=== PATIENT | female | born 1970 | race Caucasian/White ===

== ENCOUNTER → 2016-09-21 | Outpatient (CLI) | payer MEDICARE, MEDICAID ==
[~2016-09-21] MED LIST: ALBU20IN INH; CEFT500T PO; CLAR10CA3 PO; MUCI600T34 PO; MULTCAP11 PO; NYST50SS SS; SYNT25TA PO; TESS100C PO; VITA500T53 PO; [UNRECOGNIZED DRUG - CODE] EX
--- NOTE | 2016-09-21 18:17 | REP ---
CHEST, PA AND LATERAL: 09/21/2016. Clinical history: Acute laryngotracheitis. Comparison: 10/18/2013, 08/17/2013. Findings: The lung pritchard are well inflated. There is no pleural effusion or lateral pleural thickening. Minor apical scarring is noted. Heart is not enlarged. Aorta is normal. Airway intact. There is some infrahilar patchy atelectasis or infiltrate at the right base without dense consolidation or air bronchograms. Peribronchial thickening suggesting some bronchitis or reactive airway disease seen. Bones grossly intact. No free air. Impression: 1. Some perihilar changes of bronchitis or reactive airway disease and right infrahilar patchy atelectasis or infiltrate without dense consolidation or effusion. Signed by Jeb Hearn MD 09/22/2016 09:19 A
== END ==
LOC: M WUC 16:39
PROVIDERS: ATTEND Physician Assistant Medical
DX: J04.2 Acute laryngotracheitis (principal)
CPT/HCPCS: 71020; G0463

== ENCOUNTER 2016-11-20 16:09 | Emergency (ER) | payer MEDICARE, MEDICAID ==
[2016-11-20 18:30] VITALS: BP 127/77
--- NOTE | 2016-11-21 07:21 | REP ---
CHEST X-RAY: Two views. HISTORY: Cough. Transit hypotension. Comparison study September 21, 2016. FINDINGS: The lungs are symmetrically aerated and clear. Heart is not enlarged. Pulmonary vasculature is not increased. Pleural angles are sharp. IMPRESSION: No active disease. Signed by Td Bauer MD 11/21/2016 11:41 A
== END 2016-11-20 18:31 | disposition home or self-care (01) ==
LOC: EDBD 16:09 → M ED 16:47
DX: B34.9 Viral infection, unspecified (principal)

== ENCOUNTER → 2016-12-01 | Outpatient (REF) | payer MEDICARE, MEDICAID ==
[2016-12-01 18:01] LABS: FREE T4 1.53 NG/DL (0.76-1.46); PERCENT SATURATION 8.6 % (13.2-37.4)
== END ==
LOC: M SFHCPLAZ 15:18
PROVIDERS: ATTEND Family Medicine
DX: E78.2 Mixed hyperlipidemia (principal); E03.9 Hypothyroidism, unspecified; D78.89 Other postprocedural complications of the spleen; D51.3 Other dietary vitamin B12 deficiency anemia; R73.01 Impaired fasting glucose; J30.9 Allergic rhinitis, unspecified; Z79.899 Other long term (current) drug therapy
CPT/HCPCS: 36415; 80061; 82550; 82728; 83550; 84439; 84443; 86140; G0463

== ENCOUNTER → 2016-12-02 | Outpatient (CLI) | payer MEDICARE, MEDICAID ==
--- NOTE | 2016-12-02 13:03 | REPMRS ---
Patient History The patient states she had a clinical breast exam in 11/2016. Patient is postmenopausal and is nulliparous. No known family history of cancer. Digital Woman Screen Mammo: December 02, 2016 - Exam #: [id number] Bilateral CC and MLO view(s) were taken. Technologist: Ping Clarke, Technologist Prior study comparison: September 24, 2015, digital woman screen mammo performed at [facility]. September 23, 2014, digital woman screen mammo performed at [facility]. September 05, 2013, digital woman screen mammo performed at [facility]. FINDINGS: The breast tissue is heterogeneously dense. This may lower the sensitivity of mammography. There has been no change in the appearance of the mammogram from the prior studies. There is a moderate amount of residual fibroglandular tissue which is fairly symmetric. There is no interval development of dominant mass, architectural distortion, or clustered microcalcification typical of malignancy. Scattered lymph nodes are seen in the right axilla. No significant changes when compared with prior studies. ASSESSMENT: BI-RADS/ACR category 2 mammogram. Benign finding(s). Recommendation Routine screening mammogram in 1 year (for women over age 40). This mammogram was interpreted with the aid of an FDA-approved computer-aided dectection system. A. Negative x-ray reports should not delay biopsy if a dominant or clinically suspicious mass is present. B. Four to eight percent of cancers are not identified by mammography. C. Adenosis and dense breast may obscure an underlying neoplasm. Electronically Signed By: Jeb Hearn MD 12/02/16 0961
== END ==
LOC: M WHC 10:35
PROVIDERS: ATTEND Nurse Practitioner Family
DX: Z01.419 Encounter for gynecological examination (general) (routine) without abnormal findings (principal); Z12.31 Encounter for screening mammogram for malignant neoplasm of breast; Z78.0 Asymptomatic menopausal state
CPT/HCPCS: G0101; G0202

== ENCOUNTER → 2017-04-22 | Outpatient (CLI) | payer MEDICARE, MEDICAID ==
[2017-04-22 10:08] LABS: RETIC HEMOGLOBIN CONTENT CHr 35.5 PG (24-36); RETICULOCYTE % 1.9 % (0.5-1.5)
[2017-04-22 10:11] LABS: MEAN CORPUSCULAR HEMOGLOBIN 34.7 pg (27.0-33.0); MEAN CORPUSCULAR HGB CONC 34.4 g/dl (32.0-36.5); MEAN CORPUSCULAR VOLUME 100.9 fl (80.0-96.0); RED CELL DISTRIBUTION WIDTH 12.9 % (11.5-14.5); WHITE BLOOD COUNT 4.1 K/mm3 (4.0-10.0)
[2017-04-22 10:29] LABS: ALBUMIN 3.6 GM/DL (3.2-5.2); ALKALINE PHOSPHATASE 78 U/L (45-117); ALT/SGPT 17 U/L (12-78); ANION GAP 6 MEQ/L (8-16); AST/SGOT 17 U/L (15-37); BILIRUBIN,TOTAL 0.5 MG/DL (0.2-1.0); BLOOD UREA NITROGEN 17 MG/DL (7-18); CALCIUM LEVEL 8.4 MG/DL (8.5-10.1); CARBON DIOXIDE LEVEL 27 MEQ/L (21-32); CHLORIDE LEVEL 109 MEQ/L (98-107); CREATININE FOR GFR 0.98 MG/DL (0.55-1.02); FERRITIN 196 NG/ML (8-252); GLOMERULAR FILTRATION RATE > 60.0 (>58); GLUCOSE, FASTING 94 MG/DL (70-105); PERCENT SATURATION 41.8 % (13.2-45.0); POTASSIUM SERUM 4.4 MEQ/L (3.5-5.1); SODIUM LEVEL 142 MEQ/L (136-145); TOTAL IRON BINDING CAPACITY 285 UG/DL (250-450); TOTAL PROTEIN 7.2 GM/DL (6.4-8.2)
[2017-04-22 10:50] LABS: BASOPHILS 2 % (0-4)
== END ==
LOC: M LAB 09:24
PROVIDERS: ATTEND Family Medicine
DX: D50.8 Other iron deficiency anemias (principal); E55.9 Vitamin D deficiency, unspecified; R73.01 Impaired fasting glucose

== ENCOUNTER → 2017-08-23 | Outpatient (CLI) | payer MEDICARE, MEDICAID ==
[2017-08-23 08:00] LABS: BASO # 0.1 10^3/uL (0.0-0.2); BASO % 1.8 % (0.0-1.0); EOS # 0.1 10^3/uL (0.0-0.50); EOS % 2.8 % (0.0-3.0); IMMATURE GRANULOCYTE % 0.7 % (0-0); LYMPH # 1.7 10^3/uL (1.5-4.5); MEAN CORPUSCULAR HEMOGLOBIN 33.9 pg (27.0-33.0); MEAN CORPUSCULAR HGB CONC 34.1 g/dl (32.0-36.5); MEAN CORPUSCULAR VOLUME 99.6 fl (80.0-96.0); MONO # 0.5 10^3/uL (0.0-0.8); MONO % 10.1 % (0.0-5.0); NEUTROPHILS # 2.2 10^3/uL (1.8-7.7); NEUTROPHILS % 47.6 % (36.0-66.0); PLATELET COUNT, AUTOMATED 433 10^3/uL (150-450); RED CELL DISTRIBUTION WIDTH 13.3 % (11.5-14.5); WHITE BLOOD COUNT 4.6 10^3/uL (4.0-10.0)
[2017-08-23 08:48] LABS: BLOOD UREA NITROGEN 19 MG/DL (7-18); CREATININE FOR GFR 0.93 MG/DL (0.55-1.02); GLUCOSE, FASTING 105 MG/DL (70-105)
[2017-08-23 08:49] LABS: ALBUMIN 3.8 GM/DL (3.2-5.2); ALBUMIN/GLOBULIN RATIO 0.93 (1.00-1.93); ALKALINE PHOSPHATASE 141 U/L (45-117); ALT/SGPT 47 U/L (12-78); ANION GAP 7 MEQ/L (8-16); AST/SGOT 27 U/L (7-37); BILIRUBIN,TOTAL 0.3 MG/DL (0.2-1.0); CALCIUM LEVEL 8.8 MG/DL (8.5-10.1); CARBON DIOXIDE LEVEL 30 MEQ/L (21-32); CHLORIDE LEVEL 105 MEQ/L (98-107); FREE T4 1.36 NG/DL (0.76-1.46); GLOMERULAR FILTRATION RATE > 60.0 (>58); POTASSIUM SERUM 4.9 MEQ/L (3.5-5.1); SODIUM LEVEL 142 MEQ/L (136-145); TOTAL PROTEIN 7.9 GM/DL (6.4-8.2)
[2017-08-24 12:46] LABS: ALBUMIN % 54.8 % (55.8-66.1); GAMMA GLOBULIN % 20.5 % (11.1-18.8)
== END ==
LOC: M LAB 06:30
PROVIDERS: ATTEND Family Medicine
DX: D75.89 Other specified diseases of blood and blood-forming organs (principal); R73.01 Impaired fasting glucose; E03.9 Hypothyroidism, unspecified

== ENCOUNTER → 2017-12-04 | Outpatient (CLI) | payer MEDICARE, MEDICAID | LOC: M WHC 13:21 | DX: Z12.31 Encounter for screening mammogram for malignant neoplasm of breast (principal); Z78.0 Asymptomatic menopausal state; Z23 Encounter for immunization | CPT/HCPCS: 77067 ==

== ENCOUNTER → 2017-12-26 | Outpatient (CLI) | payer MEDICARE, MEDICAID ==
[2017-12-26 09:02] LABS: TOTAL 25(OH) VITAMIN D 62.5 NG/ML (30.0-100.0)
== END ==
LOC: M LAB 07:23
DX: E55.9 Vitamin D deficiency, unspecified (principal)
CPT/HCPCS: 82306

== ENCOUNTER → 2018-06-19 | Outpatient (CLI) | payer MEDICARE, MEDICAID ==
[2018-06-19 07:05] LABS: BASO # 0.1 10^3/uL (0.0-0.2); BASO % 1.6 % (0.0-1.0); EOS # 0.1 10^3/uL (0.0-0.50); EOS % 2.4 % (0.0-3.0); HEMATOCRIT 47.2 % (36.0-47.0); HEMOGLOBIN 15.6 g/dl (12.0-15.5); IMMATURE GRANULOCYTE % 0.3 % (0-3.0); LYMPH # 1.6 10^3/uL (1.5-4.5); LYMPH % 43.5 % (24.0-44.0); MEAN CORPUSCULAR HEMOGLOBIN 33.9 pg (27.0-33.0); MEAN CORPUSCULAR HGB CONC 33.1 g/dl (32.0-36.5); MEAN CORPUSCULAR VOLUME 102.6 fl (80.0-96.0); MONO # 0.4 10^3/uL (0.0-0.8); MONO % 11.5 % (0.0-5.0); NEUTROPHILS # 1.5 10^3/uL (1.8-7.7); NEUTROPHILS % 40.7 % (36.0-66.0); PLATELET COUNT, AUTOMATED 316 10^3/uL (150-450); RED CELL DISTRIBUTION WIDTH 13.2 % (11.5-14.5); RETIC HEMOGLOBIN EQUIVALENT 38.2 pg (24-36); RETICULOCYTE # 85.1 10^9/L (17-77); RETICULOCYTE % 1.9 % (0.5-1.5); WHITE BLOOD COUNT 3.8 10^3/uL (4.0-10.0)
[2018-06-19 07:10] LABS: HEMATOCRIT 47.2 % (36.0-47.0)
[2018-06-19 07:16] LABS: ESTIMATED AVERAGE GLUCOSE 120 MG/DL (60-110); HEMOGLOBIN A1c 5.8 %
[2018-06-19 07:43] LABS: ALBUMIN 3.6 GM/DL (3.2-5.2); ALBUMIN/GLOBULIN RATIO 0.86 (1.00-1.93); ALKALINE PHOSPHATASE 113 U/L (45-117); ALT/SGPT 26 U/L (12-78); ANION GAP 5 MEQ/L (8-16); AST/SGOT 21 U/L (7-37); BILIRUBIN,TOTAL 0.4 MG/DL (0.2-1.0); BLOOD UREA NITROGEN 22 MG/DL (7-18); CALCIUM LEVEL 8.8 MG/DL (8.5-10.1); CARBON DIOXIDE LEVEL 32 MEQ/L (21-32); CHLORIDE LEVEL 105 MEQ/L (98-107); FREE T4 1.25 NG/DL (0.76-1.46); GLOMERULAR FILTRATION RATE > 60.0 (>58); GLUCOSE, FASTING 93 MG/DL (70-100); POTASSIUM SERUM 4.4 MEQ/L (3.5-5.1); SODIUM LEVEL 142 MEQ/L (136-145); TOTAL PROTEIN 7.8 GM/DL (6.4-8.2)
[2018-06-19 10:45] LABS: PRETREATED FOLATE FOR RBCFOL 21.3 NG/ML; RBC FOLATE 947.7 NG/ML (280-791)
[2018-06-20 15:03] LABS: INSULIN LEVEL 12.3 uIU/mL (2.6-24.9)
== END ==
LOC: M LAB 06:18
DX: D50.8 Other iron deficiency anemias (principal); E03.9 Hypothyroidism, unspecified; E53.8 Deficiency of other specified B group vitamins; R73.01 Impaired fasting glucose
CPT/HCPCS: 83525

== ENCOUNTER → 2018-11-22 | Outpatient (CLI) | payer MEDICARE, MEDICAID ==
[2018-11-22 07:24] LABS: AMORPHOUS SEDIMENT SMALL (NEGATIVE); APPEARANCE, URINE CLEAR (CLEAR); BACTERIA, URINE AUTO NEGATIVE (NEGATIVE); BILIRUBIN, URINE AUTO NEGATIVE (NEGATIVE); BLOOD, URINE BLOOD NEGATIVE (NEGATIVE); COLOR, URINE YELLOW (YELLOW); GLUCOSE, URINE (UA) AUTO NEGATIVE (NEGATIVE); KETONE, URINE AUTO NEGATIVE (NEGATIVE); LEUKOCYTE ESTERASE, URINE AUTO NEGATIVE (NEGATIVE); NITRITE, URINE AUTO NEGATIVE (NEGATIVE); PROTEIN, URINE AUTO NEGATIVE (NEGATIVE); RBC, URINE AUTO 3 /HPF (0-3); SPECIFIC GRAVITY URINE AUTO 1.014 (1.002-1.035); SQUAMOUS EPITHELIAL CELL UR AU 0 /HPF (0-6); UROBILINOGEN, URINE AUTO 0.2 mg/dL (0.0-2.0); WBC, URINE AUTO 0 /HPF (0-3)
[2018-11-22 07:25] LABS: BASO # 0.1 10^3/uL (0.0-0.2); BASO % 2.1 % (0.0-1.0); EOS # 0.1 10^3/uL (0.0-0.50); EOS % 2.1 % (0.0-3.0); HEMATOCRIT 45.5 % (36.0-47.0); HEMOGLOBIN 15.2 g/dl (12.0-15.5); LYMPH # 1.6 10^3/uL (1.5-4.5); MEAN CORPUSCULAR HEMOGLOBIN 34.2 pg (27.0-33.0); MEAN CORPUSCULAR HGB CONC 33.4 g/dl (32.0-36.5); MEAN CORPUSCULAR VOLUME 102.5 fl (80.0-96.0); MONO # 0.5 10^3/uL (0.0-0.8); MONO % 12.4 % (0.0-5.0); NEUTROPHILS # 1.5 10^3/uL (1.8-7.7); NEUTROPHILS % 40.3 % (36.0-66.0); PLATELET COUNT, AUTOMATED 401 10^3/uL (150-450); RED BLOOD COUNT 4.44 10^6/uL (4.00-5.40); WHITE BLOOD COUNT 3.8 10^3/uL (4.0-10.0)
[2018-11-22 07:46] LABS: ALBUMIN 3.8 GM/DL (3.2-5.2); ALT/SGPT 25 U/L (12-78); BILIRUBIN,TOTAL 0.4 MG/DL (0.2-1.0); BLOOD UREA NITROGEN 21 MG/DL (7-18); CALCIUM LEVEL 9.3 MG/DL (8.5-10.1); CARBON DIOXIDE LEVEL 30 MEQ/L (21-32); CHLORIDE LEVEL 102 MEQ/L (98-107); CREATININE FOR GFR 1.19 MG/DL (0.55-1.30); GLOMERULAR FILTRATION RATE 51.3 (>58); GLUCOSE, FASTING 107 MG/DL (70-100); POTASSIUM SERUM 4.1 MEQ/L (3.5-5.1); SODIUM LEVEL 139 MEQ/L (136-145); TOTAL PROTEIN 7.9 GM/DL (6.4-8.2)
[2018-11-22 08:02] LABS: MALB URINE SIEMENS < 5.0 MG/L; MAU/CREAT RATIO 3.5 MCG/MG (0.0-30.0)
[2018-11-22 10:37] LABS: ALBUMIN 4.33 GM/DL (3.29-5.55); ALBUMIN % 54.8 % (55.8-66.1); ALPHA-1-GLOBULIN % 3.9 % (2.9-4.9); ALPHA-1-GLOBULINS 0.31 GM/DL (0.17-0.41); ALPHA-2-GLOBULINS 0.88 GM/DL (0.42-0.99); ALPHA-2-GLOBULINS % 11.2 % (7.1-11.8); BETA-1-GLOBULINS 0.38 GM/DL (0.28-0.60); BETA-1-GLOBULINS % 4.8 % (4.7-7.2); BETA-2-GLOBULINS 0.34 GM/DL (0.19-0.55); BETA-2-GLOBULINS % 4.3 % (3.2-6.5); GAMMA GLOBULINS 1.66 GM/DL (0.65-1.58)
== END ==
LOC: M LAB 06:31
PROVIDERS: ATTEND Family Medicine
DX: D75.89 Other specified diseases of blood and blood-forming organs (principal); R73.01 Impaired fasting glucose

== ENCOUNTER → 2018-12-06 | Outpatient (REF) | payer MEDICARE, MEDICAID ==
[2018-12-06 14:31] LABS: ALBUMIN 4.2 GM/DL (3.2-5.2); ALT/SGPT 25 U/L (12-78); BILIRUBIN,TOTAL 0.3 MG/DL (0.2-1.0); BLOOD UREA NITROGEN 19 MG/DL (7-18); CALCIUM LEVEL 9.6 MG/DL (8.5-10.1); CARBON DIOXIDE LEVEL 32 MEQ/L (21-32); CHLORIDE LEVEL 104 MEQ/L (98-107); CREATININE FOR GFR 0.87 MG/DL (0.55-1.30); GLOMERULAR FILTRATION RATE > 60.0 (>58); GLUCOSE, FASTING 71 MG/DL (70-100); IMMUNOGLOBULIN G 1710 MG/DL (681-1648); IMMUNOGLOBULIN M 76.7 MG/DL (40-230); SODIUM LEVEL 140 MEQ/L (136-145); TOTAL PROTEIN 7.9 GM/DL (6.4-8.2)
== END ==
LOC: M SFHCPLAZ 10:41
PROVIDERS: ATTEND Family Medicine
DX: D75.89 Other specified diseases of blood and blood-forming organs (principal)
CPT/HCPCS: 36415; 80053; 82784; 86335; G0463

== ENCOUNTER → 2019-02-01 | Outpatient (CLI) | payer MEDICARE, MEDICAID ==
--- NOTE | 2019-02-01 15:24 | REPMRS ---
Patient History The patient states she had a clinical breast exam in 01/2019. No known family history of cancer. Digital Woman Screen Mammo: February 01, 2019 - Exam #: [id number] Bilateral CC and MLO view(s) were taken. Technologist: Sakina Nayak Technologist Prior study comparison: December 04, 2017, digital woman screen mammo performed at [facility]. December 02, 2016, digital woman screen mammo performed at [facility]. September 24, 2015, digital woman screen mammo performed at [facility]. FINDINGS: The breast tissue is heterogeneously dense. This may lower the sensitivity of mammography. There is a moderate amount of heterogeneously dense fibroglandular tissue which is fairly symmetric. There is no interval development of dominant mass, architectural distortion, or clustered microcalcification typical of malignancy. There has been no change in the appearance of the mammogram from the prior studies. 3-D tomosynthesis shows no additional findings. Assessment: BI-RADS/ACR category 1 mammogram. Negative Mammogram. Recommendation Routine screening mammogram of both breasts in 1 year (for women over age 40). This patient's Lifetime Breast Cancer RIsk is estimated at 11.4 %. This mammogram was interpreted with the aid of an FDA-approved computer-aided dectection system. Electronically Signed By: Kev Bauer MD 02/01/19 [id number]
== END ==
LOC: M WHC 14:12
PROVIDERS: ATTEND Family Medicine
DX: Z01.419 Encounter for gynecological examination (general) (routine) without abnormal findings (principal); Z12.31 Encounter for screening mammogram for malignant neoplasm of breast
CPT/HCPCS: 77063; 77067; G0101; G0123

== ENCOUNTER → 2019-02-01 | Outpatient (REF) | payer MEDICARE, MEDICAID | LOC: M SFHCWAGY 14:10 | PROVIDERS: ATTEND Nurse Practitioner Family | DX: Z12.4 Encounter for screening for malignant neoplasm of cervix (principal) ==

== ENCOUNTER → 2019-03-21 | Outpatient (CLI) | payer MEDICARE, MEDICAID ==
[2019-03-21 06:56] LABS: BASO # 0.1 10^3/uL (0.0-0.2); BASO % 1.7 % (0.0-1.0); EOS # 0.1 10^3/uL (0.0-0.50); EOS % 2.3 % (0.0-3.0); HEMATOCRIT 49.4 % (36.0-47.0); HEMOGLOBIN 16.5 g/dl (12.0-15.5); LYMPH # 1.8 10^3/uL (1.5-4.5); LYMPH % 37.6 % (24.0-44.0); MEAN CORPUSCULAR HEMOGLOBIN 34.4 pg (27.0-33.0); MEAN CORPUSCULAR HGB CONC 33.4 g/dl (32.0-36.5); MEAN CORPUSCULAR VOLUME 103.1 fl (80.0-96.0); MONO # 0.5 10^3/uL (0.0-0.8); MONO % 10.1 % (0.0-5.0); NEUTROPHILS # 2.3 10^3/uL (1.8-7.7); NEUTROPHILS % 47.9 % (36.0-66.0); PLATELET COUNT, AUTOMATED 325 10^3/uL (150-450); RED BLOOD COUNT 4.79 10^6/uL (4.00-5.40); WHITE BLOOD COUNT 4.8 10^3/uL (4.0-10.0)
[2019-03-21 07:14] LABS: HEMOGLOBIN A1c 6.3 %
[2019-03-21 07:31] LABS: CHOLESTEROL RISK RATIO 2.91 (<5); PERCENT SATURATION 27.2 % (13.2-45.0)
== END ==
LOC: M LAB 06:27
PROVIDERS: ATTEND Physician Assistant Medical
DX: D50.8 Other iron deficiency anemias (principal); R73.01 Impaired fasting glucose; E53.8 Deficiency of other specified B group vitamins; E78.2 Mixed hyperlipidemia

== ENCOUNTER → 2019-12-25 | Outpatient (CLI) | payer MEDICARE, MEDICAID ==
--- NOTE | 2019-12-26 09:28 | REP ---
REASON FOR EXAM: Altered mental status/mild dementia. COMPARISON: None. The technologist has indicated in the patient's synapse power jacket that the images obtained were the best images possible. There is significant motion artifact seen on all images. This significantly decreases the sensitivity of the examination. Multiple scans were repeated. Some scan planes were all together eliminated. There is limited ability to evaluate the craniovertebral junction or imaged portion of the spinal cord. No gross cerebellar tonsillar ectopia, however, is suspected. The ventricles and sulci are within normal limits possibly minimally dilated for the patient's age of 49 years. There is no gross shift in the midline structures. There are no gross extra-axial fluid collections. There is no gross deep cerebral white matter abnormality, however, even with the marked motion artifact, FLAIR images do suggest multiple small foci of deep white matter FLAIR signal hyperintensities. Due to the motion artifact, these cannot be well evaluated with standard T2 imaging. No gross signal hyperintensities are seen on diffusion-weighted imaging which is also markedly limited and no gross areas of abnormal signal void are seen on ADC mapped imaging. There is no evidence of a gross abnormality involving the posterior fossa or cerebellar pontine angles. IMPRESSION: Examination is markedly limited as described above. There is evidence of nonspecific deep white matter signal hyperintensity seen in a markedly limited fashion as described above. If a post sedation repeat examination can be obtained, then it is recommended. Electronically Signed by Cornell Villarreal DO 12/26/2019 10:50 A
== END ==
LOC: M RAD 15:57
PROVIDERS: ATTEND Family Medicine
DX: F03.90 Unspecified dementia, unspecified severity, without behavioral disturbance, psychotic disturbance, mood disturbance, and anxiety (principal)

== ENCOUNTER → 2020-04-09 | Outpatient (CLI) | payer MEDICARE, MEDICAID ==
[~2020-04-09] MED LIST changes: +ALEN70SO PO; +CALC600C3 PO
--- NOTE | 2020-05-21 12:38 | DEXA ---
AP SPINE L1 - L4 1.085 -0.9 -0.4 LT FEMUR TOTAL 0.686 -2.6 -2.0 LT NECK 0.628 -2.9 -2.1 RT FEMUR TOTAL 0.690 -2.5 -2.0 RT NECK 0.640 -2.9 -2.0 TOTAL BODY TOTAL OTHER COMMENTS: Normal bone densitometry of the spine. There is osteoporosis of the hips. The density of the spine is increased 8.7% since 12/12/2017. The density of the left hip has increased 2.1% since 12/12/2017. The density of the right hip has increased 2.7% since 12/12/2017. FOLLOW-UP: Recommendation for the next bone density exam: 2 years. JUAN
== END ==
LOC: M WHC 07:46
PROVIDERS: ATTEND Family Medicine
DX: M81.0 Age-related osteoporosis without current pathological fracture (principal)

== ENCOUNTER → 2020-04-29 | Outpatient (CLI) | payer MEDICARE, MEDICAID | LOC: M LABSMTC 09:39 | PROVIDERS: ATTEND Anesthesiology | DX: Z03.818 Encounter for observation for suspected exposure to other biological agents ruled out (principal); Z11.59 Encounter for screening for other viral diseases | CPT/HCPCS: C9803; U0003 ==

== ENCOUNTER 2020-05-04 13:24 | Day surgery (SDC) | payer MEDICARE, MEDICAID ==
[~2020-05-04] VITALS: Ht 149.9 cm; Wt 43.9 kg
[~2020-05-04 13:24] MED LIST changes: -ALEN70SO PO; -CALC600C3 PO; +LIDOCAINE 2% 100MG/5ML SDV (FOR ANES.) As Ordered ONE; +propofoL 200 MG/20 ML VIAL As Ordered ONE
[2020-05-04] MEDS ORDERED: CALC600C3 PO (14:14)
[2020-05-04] MEDS ORDERED: ALEN70SO PO (14:14)
[2020-05-04] MEDS ORDERED: ePHEDrine SULFATE 25 MG/5 ML(5MG/ML) SYRINGE As Ordered ONE (14:59)
[2020-05-04 15:30] VITALS: BP 106/54
[2020-05-05] MEDS ORDERED: NS 1,000 ML IV ONE (07:00)
--- NOTE | 2020-05-13 11:37 | ROOR ---
Patient Name: Manda Anne Procedure Date: 05/04/2020 2:51 PM Date of : 1970 Age: 50 Room: [facility] Gender: Female Note Status: Finalized Procedure: Total Colonoscopy to Cecum Indications: Screening for colorectal malignant neoplasm Providers: Jose Pickett MD Referring MD: Manjinder Olivarez MD Requesting Provider: Medicines: Monitored Anesthesia Care Complications: No immediate complications. Procedure: Pre-Anesthesia Assessment: - The heart rate, respiratory rate, oxygen saturations, blood pressure, adequacy of pulmonary ventilation, and response to care were monitored throughout the procedure. The Colonoscope was introduced through the anus and advanced to the cecum, identified by appendiceal orifice and ileocecal valve. The colonoscopy was performed without difficulty. The patient tolerated the procedure well. The quality of the bowel preparation was excellent. Findings: The perianal and digital rectal examinations were normal. Non-bleeding internal hemorrhoids were found during retroflexion. The hemorrhoids were small and Grade I (internal hemorrhoids that do not prolapse). The exam was otherwise without abnormality on direct and retroflexion views. The exam was otherwise without abnormality. Impression: - Non-bleeding internal hemorrhoids. - The examination was otherwise normal on direct and retroflexion views. - The examination was otherwise normal. - No specimens collected. - The exam was otherwise normal to the cecum. Recommendation: - Patient has a contact number available for emergencies. The signs and symptoms of potential delayed complications were discussed with the patient. Return to normal activities tomorrow. Written discharge instructions were provided to the patient. - High fiber diet. - Discharge patient to home. - Continue present medications. - Repeat colonoscopy in 7 years for screening purposes. - Return to referring physician. - The findings and recommendations were discussed with the designated responsible adult. Jose Pickett MD Jose Pickett MD 05/04/2020 3:10:40 PM Number of Addenda: 0 Note Initiated On: 05/04/2020 2:51 PM Estimated Blood Loss: Estimated blood loss: none.
== END 2020-05-04 15:46 | disposition home or self-care (01) ==
LOC: M OPP 13:24
PROVIDERS: ATTEND Internal Medicine Gastroenterology
DX: Z12.11 Encounter for screening for malignant neoplasm of colon (principal); K64.0 First degree hemorrhoids; E03.9 Hypothyroidism, unspecified; Z79.899 Other long term (current) drug therapy

== ENCOUNTER → 2020-05-22 | Outpatient (CLI) | payer MEDICARE, MEDICAID ==
[~2020-05-22] MED LIST changes: +ALEN70SO PO; +CALC600C3 PO; -LIDOCAINE 2% 100MG/5ML SDV (FOR ANES.) As Ordered ONE; -propofoL 200 MG/20 ML VIAL As Ordered ONE
[2020-05-22 14:08] LABS: ALT/SGPT 24 U/L (12-78); BILIRUBIN,TOTAL 0.4 MG/DL (0.2-1.0); BLOOD UREA NITROGEN 23 MG/DL (7-18); CALCIUM LEVEL 10.4 MG/DL (8.5-10.1); CARBON DIOXIDE LEVEL 33 MEQ/L (21-32); CHLORIDE LEVEL 104 MEQ/L (98-107); CHOLESTEROL LEVEL 195 MG/DL (<200); CHOLESTEROL RISK RATIO 2.867 (<5); CREATININE FOR GFR 1.11 MG/DL (0.55-1.30); FREE T4 1.42 NG/DL (0.76-1.46); GLOMERULAR FILTRATION RATE 55.2 (>51); GLUCOSE, FASTING 81 MG/DL (70-100); HDL CHOLESTEROL 68 MG/DL (>40); LDL CHOLESTEROL 93 MG/DL (<100); NON-HDL-C 127 MG/DL; POTASSIUM SERUM 4.1 MEQ/L (3.5-5.1); PTH INTACT 8.1 PG/ML (18.5-88.0); SODIUM LEVEL 141 MEQ/L (136-145); THYROID STIMULATING HORMONE 0.328 uIU/ML (0.358-3.740); TOTAL 25(OH) VITAMIN D 71.8 NG/ML (30.0-100.0); TOTAL PROTEIN 7.6 GM/DL (6.4-8.2); TRIGLYCERIDES LEVEL 168 MG/DL (<150)
== END ==
LOC: M PLALAB 10:42
PROVIDERS: ATTEND Family Medicine
DX: E78.2 Mixed hyperlipidemia (principal); R73.01 Impaired fasting glucose; E03.9 Hypothyroidism, unspecified; Z79.899 Other long term (current) drug therapy

== ENCOUNTER 2020-09-28 18:48 | Emergency (ER) | payer MEDICARE, MEDICAID ==
[~2020-09-28] VITALS: Ht 160 cm; Wt 56.4 kg
[2020-09-28 19:11] VITALS: BP 119/86
== END 2020-09-28 19:45 | disposition home or self-care (01) ==
LOC: M ED 18:48
DX: Z03.89 Encounter for observation for other suspected diseases and conditions ruled out (principal)

== ENCOUNTER → 2020-11-02 | Outpatient (REF) | payer MEDICARE, MEDICAID ==
[2020-11-02 14:51] LABS: BASO # 0.1 10^3/uL (0.0-0.2); BASO % 1.8 % (0.0-1.0); EOS # 0.1 10^3/uL (0.0-0.5); EOS % 1.5 % (0.0-3.0); HEMOGLOBIN 14.3 g/dl (12.0-15.5); LYMPH # 1.7 10^3/uL (1.5-5.0); LYMPH % 31.9 % (24.0-44.0); MEAN CORPUSCULAR HEMOGLOBIN 33.9 pg (27.0-33.0); MEAN CORPUSCULAR HGB CONC 32.5 g/dl (32.0-36.5); MEAN CORPUSCULAR VOLUME 104.3 fl (80.0-96.0); MONO # 0.5 10^3/uL (0.0-0.8); MONO % 8.6 % (2.0-8.0); NEUTROPHILS # 3.1 10^3/uL (1.5-8.5); PLATELET COUNT, AUTOMATED 325 10^3/uL (150-450); RED BLOOD COUNT 4.22 10^6/uL (4.00-5.40); WHITE BLOOD COUNT 5.5 10^3/uL (4.0-10.0)
[2020-11-02 15:04] LABS: ALBUMIN 3.8 GM/DL (3.2-5.2); BILIRUBIN,TOTAL 0.2 MG/DL (0.2-1.0); CALCIUM LEVEL 9.2 MG/DL (8.5-10.1); CREATININE FOR GFR 1.08 MG/DL (0.55-1.30); FREE T4 1.07 NG/DL (0.76-1.46); GLOMERULAR FILTRATION RATE 56.9 (>51); POTASSIUM SERUM 4.2 MEQ/L (3.5-5.1); THYROID STIMULATING HORMONE 1.36 uIU/ML (0.358-3.740); TOTAL PROTEIN 7.6 GM/DL (6.4-8.2)
[2020-11-02 15:05] LABS: PTH INTACT 24.2 PG/ML (18.5-88.0)
[2020-11-02 17:33] LABS: TOTAL 25(OH) VITAMIN D 57.9 NG/ML (30.0-100.0)
== END ==
LOC: M SFHCPLAZ 11:47
PROVIDERS: ATTEND Family Medicine
DX: E55.9 Vitamin D deficiency, unspecified (principal); E03.9 Hypothyroidism, unspecified; E53.8 Deficiency of other specified B group vitamins; D50.8 Other iron deficiency anemias
CPT/HCPCS: 36415; 80053; 82306; 82607; 82728; 83970; 84439; 84443; 85025; G0463

== ENCOUNTER → 2021-03-30 | Outpatient (CLI) | payer MEDICARE, MEDICAID ==
--- NOTE | 2021-03-30 17:03 | REPMRS ---
Patient History The patient states she had a clinical breast exam in March 2021. No known family history of cancer. Best views possible due to patient condition-[facility] client No breast complaints today Patient signed the MRS sheet Per the aid with pt she had both Pfizer vaccines in September, not sure which arm Priors on PACS Patient Identification Verified Digital Woman Screen Mammo: March 30, 2021 - Exam #: [id number] Bilateral CC and MLO view(s) were taken. Technologist: Cherry Lewis, Technologist Prior study comparison: March 27, 2020, bilateral digital woman screen mammo performed at [facility]. February 01, 2019, bilateral digital woman screen mammo performed at [facility] [place]. FINDINGS: The breast tissue is heterogeneously dense. This may lower the sensitivity of mammography. Screening. Digital screening (2D) mammography was performed bilaterally in the CC and MLO projections. Additionally, breast tomosynthesis (3D mammography) was performed bilaterally in the CC and MLO projections. Todays exam was compared to the prior exam/exams. By history, the patient has no complaints of a palpable breast abnormality or other significant breast complaints. The breasts are unchanged in size and shape. Once again, dense heterogenous fibroglandular elements are seen bilaterally in a stable appearing pattern but to such a degree that the sensitivity of the mammogram in detecting cancer is decreased.There are no kelly-soft tissue densities or spiculated masses. There is no internal architectural distortion.Once again, stable benign appearing calcifications are seen. There are no suspicious kelly-calcific clusters. Skin thickening or nipple retraction is not present. IMPRESSION: BI-RADS Category 2- Benign Findings. There is no evidence of malignant alteration of the breasts. Followup examination recommended in one year. The Volpara volumetric breast density category is C, the breasts are heterogenously dense which may obscure small masses. This mammogram was read with the assistance of Deisi BoyerWattblock,an FDA approved computer aided detection system for mammography. The lifetime Tyrer-Cuzick score is 10.8 % Due to the density of the breasts or Tyrer Cuzick score of 20% or greater, MRI/whole breast screening ultrasound is warranted. Negative x-ray reports should not delay surgical consultation if a dominant or clinically suspicious mass is present. Not all breast cancers can be identified by mammography. Therefore, we recommend that you continue to perform regular breast self-examination and physical examination and then promptly contact your physician of any concerns or changes. Adenosis and dense breasts may obscure an underlying neoplasm. Assessment: BI-RADS/ACR category 2 mammogram. Benign Findings. Recommendation Routine screening mammogram of both breasts in 1 year. Electronically Signed By: Cornell Villarreal DO 03/30/21 [id number]
== END ==
LOC: M WHC 10:58
PROVIDERS: ATTEND Obstetrics & Gynecology
DX: Z01.419 Encounter for gynecological examination (general) (routine) without abnormal findings (principal); Z12.31 Encounter for screening mammogram for malignant neoplasm of breast
CPT/HCPCS: 77063; 77067; G0101

== ENCOUNTER → 2021-04-01 | Outpatient (CLI) | payer MEDICARE, MEDICAID ==
[2021-04-01 11:56] LABS: BASO # 0.1 10^3/uL (0.0-0.2); BASO % 2.2 % (0.0-1.0); EOS # 0.1 10^3/uL (0.0-0.5); EOS % 1.6 % (0.0-3.0); HEMOGLOBIN 15.3 g/dl (12.0-15.5); LYMPH # 1.2 10^3/uL (1.5-5.0); LYMPH % 36.3 % (24.0-44.0); MEAN CORPUSCULAR HEMOGLOBIN 34.3 pg (27.0-33.0); MEAN CORPUSCULAR HGB CONC 32.6 g/dl (32.0-36.5); MEAN CORPUSCULAR VOLUME 105.4 fl (80.0-96.0); MONO # 0.3 10^3/uL (0.0-0.8); MONO % 10.4 % (2.0-8.0); NEUTROPHILS # 1.6 10^3/uL (1.5-8.5); NEUTROPHILS % 48.9 % (36.0-66.0); PLATELET COUNT, AUTOMATED 310 10^3/uL (150-450); RED BLOOD COUNT 4.46 10^6/uL (4.00-5.40); WHITE BLOOD COUNT 3.2 10^3/uL (4.0-10.0)
[2021-04-01 12:18] LABS: ALBUMIN 4.1 GM/DL (3.2-5.2); BLOOD UREA NITROGEN 16 MG/DL (7-18); CALCIUM LEVEL 9.5 MG/DL (8.5-10.1); CARBON DIOXIDE LEVEL 32 MEQ/L (21-32); CHLORIDE LEVEL 106 MEQ/L (98-107); CHOLESTEROL LEVEL 226 MG/DL (<200); CHOLESTEROL RISK RATIO 3.138 (<5); CREATININE FOR GFR 0.99 MG/DL (0.55-1.30); FERRITIN 294 NG/ML (8-252); GLOMERULAR FILTRATION RATE > 60.0 (>51); GLUCOSE, FASTING 94 MG/DL (70-100); HDL CHOLESTEROL 72 MG/DL (>40); LDL CHOLESTEROL 131 MG/DL (<100); NON-HDL-C 154 MG/DL; PHOSPHORUS LEVEL 3.4 MG/DL (2.5-4.9); SODIUM LEVEL 141 MEQ/L (136-145); TRIGLYCERIDES LEVEL 117 MG/DL (<150)
[2021-04-01 12:23] LABS: PTH INTACT 13.2 PG/ML (18.5-88.0); TOTAL 25(OH) VITAMIN D 66.6 NG/ML (30.0-100.0)
[2021-04-01 12:42] LABS: HEMOGLOBIN A1c 5.8 %
== END ==
LOC: M PLALAB 08:27
PROVIDERS: ATTEND Family Medicine
DX: E55.9 Vitamin D deficiency, unspecified (principal); R73.01 Impaired fasting glucose; D50.8 Other iron deficiency anemias; E78.2 Mixed hyperlipidemia

== ENCOUNTER → 2021-09-07 | Outpatient (REF) | payer MEDICARE, MEDICAID ==
[2021-09-08 10:45] LABS: APPEARANCE, URINE HAZY (CLEAR); BACTERIA, URINE AUTO NEGATIVE (NEGATIVE); BILIRUBIN, URINE AUTO NEGATIVE (NEGATIVE); BLOOD, URINE BLOOD NEGATIVE (NEGATIVE); COLOR, URINE YELLOW (YELLOW); GLUCOSE, URINE (UA) AUTO NEGATIVE (NEGATIVE); KETONE, URINE AUTO NEGATIVE (NEGATIVE); LEUKOCYTE ESTERASE, URINE AUTO TRACE (NEGATIVE); NITRITE, URINE AUTO NEGATIVE (NEGATIVE); PROTEIN, URINE AUTO NEGATIVE (NEGATIVE); RBC, URINE AUTO 4 /HPF (0-3); SPECIFIC GRAVITY URINE AUTO 1.014 (1.002-1.035); SQUAMOUS EPITHELIAL CELL UR AU 0 /HPF (0-6); TRIPLE PHOSPHATE CRYSTALS SMALL; UROBILINOGEN, URINE AUTO 0.2 mg/dL (0.0-2.0); WBC, URINE AUTO 23 /HPF (0-3)
== END ==
LOC: M SFHCPLAZ 09:52
PROVIDERS: ATTEND Physician Assistant
DX: R32 Unspecified urinary incontinence (principal); R31.9 Hematuria, unspecified

== ENCOUNTER 2021-09-13 10:08 | Emergency (ER) | payer MEDICARE, MEDICAID ==
[~2021-09-13] VITALS: Ht 144.8 cm; Wt 40.7 kg
[2021-09-13 10:10] VITALS: BP 114/59
[2021-09-13 10:53] LABS: APPEARANCE, URINE MANUAL CLEAR (CLEAR); BILIRUBIN, URINE MANUAL NEGATIVE (NEGATIVE); BLOOD URINE MANUAL TRACE (NEGATIVE); COLOR, URINE MANUAL LT YELLOW (YELLOW); GLUCOSE, URINE (UA) MANUAL NEGATIVE (NEGATIVE); KETONE, URINE MANUAL NEGATIVE (NEGATIVE); LEUKOCYTE ESTERASE, URINE MAN TRACE (NEGATIVE); NITRITE, URINE MANUAL NEGATIVE (NEGATIVE); PROTEIN, URINE MANUAL NEGATIVE (NEGATIVE); UROBILINOGEN, URINE MANUAL NORMAL (NORMAL)
[2021-09-13 10:55] LABS: BACTERIA, URINE SMALL AMOUNT; HYALINE CAST, URINE NONE SEEN /lpf (0-1); RBC, URINE 0-1 /hpf (0-3); SQUAMOUS EPITHELIAL CELL URINE NONE SEEN /hpf (SMALL AMT); WBC, URINE 0-1 /hpf (0-3)
[2021-09-13] MEDS ORDERED: MACR100C43 PO (11:01)
== END 2021-09-13 11:19 | disposition home or self-care (01) ==
LOC: M ED 10:08
DX: N39.0 Urinary tract infection, site not specified (principal); Q90.9 Down syndrome, unspecified; E03.9 Hypothyroidism, unspecified; G35 Multiple sclerosis; E53.9 Vitamin B deficiency, unspecified; Z79.899 Other long term (current) drug therapy; Z79.890 Hormone replacement therapy

== ENCOUNTER → 2021-09-15 | Outpatient (CLI) | payer MEDICARE, MEDICAID ==
[~2021-09-15] MED LIST changes: -ALEN70SO PO; +ALEN70SO2 PO; +MACR100C43 PO
== END ==
LOC: M PLAIMG 09:47
PROVIDERS: ATTEND Physician Assistant
DX: R10.84 Generalized abdominal pain (principal); E86.0 Dehydration; R53.81 Other malaise
CPT/HCPCS: 36415; 74018; 80053; 83690; 85025; 85652; 86140; 87426; 87798; G0463

== ENCOUNTER → 2021-09-15 | Outpatient (REF) | payer MEDICARE, MEDICAID | LOC: M SFHCPLAZ 13:01 | PROVIDERS: ATTEND Physician Assistant | DX: R53.81 Other malaise (principal) ==

== ENCOUNTER → 2021-12-24 | Outpatient (CLI) | payer MEDICARE, MEDICAID ==
[2021-12-24 10:28] LABS: HEMOGLOBIN A1c 5.6 %
[2021-12-24 10:38] LABS: ALBUMIN 3.7 GM/DL (3.2-5.2); BLOOD UREA NITROGEN 26 MG/DL (7-18); CALCIUM LEVEL 9.5 MG/DL (8.5-10.1); CARBON DIOXIDE LEVEL 31 MEQ/L (21-32); CHLORIDE LEVEL 108 MEQ/L (98-107); CREATININE FOR GFR 1.05 MG/DL (0.55-1.30); FREE T4 0.93 NG/DL (0.76-1.46); GLOMERULAR FILTRATION RATE 58.6 (>51); GLUCOSE, FASTING 95 MG/DL (70-100); PHOSPHORUS LEVEL 3.7 MG/DL (2.5-4.9); POTASSIUM SERUM 4.2 MEQ/L (3.5-5.1); PTH INTACT 25.7 PG/ML (18.5-88.0); SODIUM LEVEL 144 MEQ/L (136-145); TOTAL 25(OH) VITAMIN D 62.5 NG/ML (30.0-100.0); TOTAL PROTEIN 7.3 GM/DL (6.4-8.2)
[2021-12-28 12:53] LABS: ALBUMIN 4.15 GM/DL (3.29-5.55); ALBUMIN % 56.9 % (55.8-66.1); ALPHA-1-GLOBULIN % 3.5 % (2.9-4.9); ALPHA-1-GLOBULINS 0.26 GM/DL (0.17-0.41); BETA-1-GLOBULINS 0.36 GM/DL (0.28-0.60); BETA-1-GLOBULINS % 4.9 % (4.7-7.2); BETA-2-GLOBULINS 0.28 GM/DL (0.19-0.55); BETA-2-GLOBULINS % 3.8 % (3.2-6.5); GAMMA GLOBULIN % 19.9 % (11.1-18.8); GAMMA GLOBULINS 1.45 GM/DL (0.65-1.58)
[2021-12-28 14:26] LABS: VITAMIN B12 LEVEL 985 PG/ML (247-911)
== END ==
LOC: M WUC 08:02
PROVIDERS: ATTEND Family Medicine
DX: E53.8 Deficiency of other specified B group vitamins (principal); E55.9 Vitamin D deficiency, unspecified; R73.01 Impaired fasting glucose; Z79.899 Other long term (current) drug therapy

== ENCOUNTER → 2022-01-05 | Outpatient (CLI) | payer MEDICARE, MEDICAID ==
[2022-01-05 16:06] LABS: BASO # 0.1 10^3/uL (0.0-0.2); BASO % 1.8 % (0.0-1.0); EOS # 0.1 10^3/uL (0.0-0.5); EOS % 1.3 % (0.0-3.0); HEMATOCRIT 41.8 % (36.0-47.0); HEMOGLOBIN 13.6 g/dl (12.0-15.5); LYMPH # 1.3 10^3/uL (1.5-5.0); LYMPH % 29.7 % (24.0-44.0); MEAN CORPUSCULAR HEMOGLOBIN 34.6 pg (27.0-33.0); MEAN CORPUSCULAR HGB CONC 32.5 g/dl (32.0-36.5); MEAN CORPUSCULAR VOLUME 106.4 fl (80.0-96.0); MONO # 0.5 10^3/uL (0.0-0.8); MONO % 10.3 % (2.0-8.0); NEUTROPHILS # 2.5 10^3/uL (1.5-8.5); NEUTROPHILS % 56.5 % (36.0-66.0); PLATELET COUNT, AUTOMATED 327 10^3/uL (150-450); RED BLOOD COUNT 3.93 10^6/uL (4.00-5.40); WHITE BLOOD COUNT 4.5 10^3/uL (4.0-10.0)
[2022-01-05 16:45] LABS: ALBUMIN 3.9 GM/DL (3.2-5.2); BILIRUBIN,TOTAL 0.3 MG/DL (0.2-1.0); CALCIUM LEVEL 10.5 MG/DL (8.5-10.1); CREATININE FOR GFR 1.06 MG/DL (0.55-1.30); POTASSIUM SERUM 4.2 MEQ/L (3.5-5.1); TOTAL PROTEIN 7.5 GM/DL (6.4-8.2)
[2022-01-05 21:59] LABS: HEMOGLOBIN A1c 5.7 %
== END ==
LOC: M WUC 11:35
PROVIDERS: ATTEND Family Medicine
DX: D50.8 Other iron deficiency anemias (principal); R73.01 Impaired fasting glucose

== ENCOUNTER → 2022-01-17 | Outpatient (CLI) | payer MEDICARE, MEDICAID | LOC: M WUC 11:31 | PROVIDERS: ATTEND Family Medicine | DX: M85.6 Other cyst of bone (principal) ==

== ENCOUNTER → 2022-05-06 | Outpatient (CLI) | payer MEDICARE, MEDICAID | LOC: M WHC 14:16 | PROVIDERS: ATTEND Family Medicine | DX: R92.2 Inconclusive mammogram (principal); M81.0 Age-related osteoporosis without current pathological fracture ==

== ENCOUNTER → 2022-06-15 | Outpatient (CLI) | payer MEDICARE, MEDICAID | LOC: M WHC 10:05 | PROVIDERS: ATTEND Family Medicine | DX: R92.2 Inconclusive mammogram (principal) | CPT/HCPCS: 77065; G0279 ==

== ENCOUNTER → 2022-08-17 | Outpatient (CLI) | payer MEDICARE, MEDICAID ==
[2022-08-17 15:20] LABS: BASO # 0.1 10^3/uL (0.0-0.2); BASO % 2.2 % (0.0-1.0); EOS # 0.2 10^3/uL (0.0-0.5); EOS % 3.9 % (0.0-3.0); HEMOGLOBIN 14.1 g/dl (12.0-15.5); LYMPH # 1.1 10^3/uL (1.5-5.0); LYMPH % 27.3 % (24.0-44.0); MEAN CORPUSCULAR HEMOGLOBIN 34.1 pg (27.0-33.0); MEAN CORPUSCULAR HGB CONC 32.8 g/dl (32.0-36.5); MEAN CORPUSCULAR VOLUME 103.9 fl (80.0-96.0); MONO # 0.4 10^3/uL (0.0-0.8); NEUTROPHILS # 2.3 10^3/uL (1.5-8.5); NEUTROPHILS % 57.1 % (36.0-66.0); PLATELET COUNT, AUTOMATED 360 10^3/uL (150-450); RED BLOOD COUNT 4.14 10^6/uL (4.00-5.40); WHITE BLOOD COUNT 4.1 10^3/uL (4.0-10.0)
[2022-08-17 15:31] LABS: ALBUMIN 3.7 G/DL (3.2-5.2); ALKALINE PHOSPHATASE 92 U/L (46-116); ALT/SGPT 16 U/L (7.0-40); AST/SGOT 29 U/L (<34); BILIRUBIN,TOTAL 0.3 MG/DL (0.3-1.2); BLOOD UREA NITROGEN 25 MG/DL (9-23); CALCIUM LEVEL 9.9 MG/DL (8.5-10.1); CARBON DIOXIDE LEVEL 32 MMOL/L (20-31); CHLORIDE LEVEL 103 MMOL/L (98-107); GLUCOSE, FASTING 90 MG/DL (60-100); POTASSIUM SERUM 4.2 MMOL/L (3.5-5.1); PTH INTACT 17.6 PG/ML (18.5-88.0); SODIUM LEVEL 141 MMOL/L (136-145); TOTAL PROTEIN 7.8 G/DL (5.7-8.2)
[2022-08-17 15:32] LABS: TOTAL 25(OH) VITAMIN D 73.4 NG/ML (20.0-100.0)
[2022-08-17 15:33] LABS: FREE T4 0.98 NG/DL (0.89-1.76); THYROID STIMULATING HORMONE 2.934 uIU/ML (0.55-4.78)
== END ==
LOC: M PLALAB 09:41
PROVIDERS: ATTEND Family Medicine
DX: D75.89 Other specified diseases of blood and blood-forming organs (principal); E55.9 Vitamin D deficiency, unspecified; E03.9 Hypothyroidism, unspecified; Z79.899 Other long term (current) drug therapy

== ENCOUNTER → 2022-08-24 | Outpatient (CLI) | payer MEDICARE, MEDICAID ==
[2022-08-24 13:13] LABS: MEAN CORPUSCULAR HGB CONC 32.5 g/dl (32.0-36.5); MEAN CORPUSCULAR VOLUME 104.7 fl (80.0-96.0); PLATELET COUNT, AUTOMATED 261 10^3/uL (150-450); RED BLOOD COUNT 3.82 10^6/uL (4.00-5.40); WHITE BLOOD COUNT 3.4 10^3/uL (4.0-10.0)
[2022-08-24 13:41] LABS: ALBUMIN 3.6 G/DL (3.2-5.2); BILIRUBIN,TOTAL 0.2 MG/DL (0.3-1.2); CALCIUM LEVEL 9.8 MG/DL (8.5-10.1); CREATININE FOR GFR 1.17 MG/DL (0.55-1.30); GLOMERULAR FILTRATION RATE 51.5 (>51); POTASSIUM SERUM 4.5 MMOL/L (3.5-5.1); TOTAL PROTEIN 7.3 G/DL (5.7-8.2)
[2022-08-24 13:43] LABS: FREE T4 1.05 NG/DL (0.89-1.76); THYROID STIMULATING HORMONE 2.362 uIU/ML (0.55-4.78)
[2022-08-24 14:52] LABS: ATYPICAL LYMPH 1 % (0-5); EOSINOPHILS 1 % (0-3); LYMPHOCYTES 39 % (16-44); MONOCYTES 12 % (0-5); NEUTROPHILS 46 % (28-66)
[2022-08-24 14:53] LABS: PLATELET ESTIMATE NORMAL (NORMAL)
== END ==
LOC: M LAB 12:26
PROVIDERS: ATTEND Hospitalist
DX: E03.9 Hypothyroidism, unspecified (principal); R41.89 Other symptoms and signs involving cognitive functions and awareness

== ENCOUNTER → 2023-02-28 | Outpatient (CLI) | payer MEDICARE, MEDICAID ==
[2023-02-28 11:29] LABS: BASO # 0.1 10^3/uL (0.0-0.2); BASO % 2.6 % (0.0-1.0); EOS # 0.1 10^3/uL (0.0-0.5); EOS % 1.9 % (0.0-3.0); HEMATOCRIT 43.9 % (36.0-47.0); HEMOGLOBIN 14.6 g/dl (12.0-15.5); LYMPH % 35.8 % (24.0-44.0); MEAN CORPUSCULAR HEMOGLOBIN 34.9 pg (27.0-33.0); MEAN CORPUSCULAR HGB CONC 33.3 g/dl (32.0-36.5); MONO # 0.3 10^3/uL (0.0-0.8); MONO % 11.7 % (2.0-8.0); NEUTROPHILS # 1.3 10^3/uL (1.5-8.5); NEUTROPHILS % 47.6 % (36.0-66.0); PLATELET COUNT, AUTOMATED 291 10^3/uL (150-450); RED BLOOD COUNT 4.18 10^6/uL (4.00-5.40); WHITE BLOOD COUNT 2.7 10^3/uL (4.0-10.0)
[2023-02-28 11:36] LABS: ALBUMIN 3.9 G/DL (3.2-5.2); CHOLESTEROL RISK RATIO 2.33 (<5); CREATININE FOR GFR 1.06 MG/DL (0.55-1.30); GLOMERULAR FILTRATION RATE 57.7 (>51); HDL CHOLESTEROL 68.2 MG/DL (>40); LDL CHOLESTEROL 62.4 MG/DL (<100); NON-HDL-C 90.8 MG/DL; PHOSPHORUS LEVEL 3.7 MG/DL (2.5-4.9); POTASSIUM SERUM 4.1 MMOL/L (3.5-5.1); PTH INTACT 12.3 PG/ML (18.5-88.0); TOTAL 25(OH) VITAMIN D 70.8 NG/ML (20.0-100.0)
[2023-02-28 11:37] LABS: FERRITIN 194.5 NG/ML (7.3-270.7); THYROID STIMULATING HORMONE 1.787 uIU/ML (0.55-4.78)
[2023-02-28 11:38] LABS: FREE T4 1.08 NG/DL (0.89-1.76)
[2023-02-28 12:32] LABS: HEMOGLOBIN A1c 5.4 % (4.0-6.0)
[2023-03-01 08:11] LABS: ERYTHROPOIETIN 8.9 mIU/mL (2.6-18.5); INSULIN LEVEL 3.5 uIU/mL (2.6-24.9)
== END ==
LOC: M PLALAB 07:58
PROVIDERS: ATTEND Family Medicine
DX: R73.01 Impaired fasting glucose (principal); E03.9 Hypothyroidism, unspecified; E78.2 Mixed hyperlipidemia; D75.89 Other specified diseases of blood and blood-forming organs; E53.8 Deficiency of other specified B group vitamins; E55.9 Vitamin D deficiency, unspecified; Z79.899 Other long term (current) drug therapy

== ENCOUNTER → 2023-03-09 | Outpatient (REF) | payer MEDICARE, MEDICAID ==
[2023-03-09 15:36] LABS: CREATININE,RANDOM URINE 75.5 MG/DL
[2023-03-09 15:42] LABS: TOTAL PROTEIN,RANDOM URINE < 6.0 MG/DL (0.0-14.0)
== END ==
LOC: M SFHCPLAZ 14:47
PROVIDERS: ATTEND Family Medicine
DX: E55.9 Vitamin D deficiency, unspecified (principal); E53.8 Deficiency of other specified B group vitamins

== ENCOUNTER → 2023-04-19 | Outpatient (REF) | payer MEDICARE, MEDICAID ==
[2023-04-19 15:32] LABS: APPEARANCE, URINE CLEAR (CLEAR); BACTERIA, URINE AUTO 1+ (NEGATIVE); BILIRUBIN, URINE AUTO NEGATIVE (NEGATIVE); BLOOD, URINE BLOOD NEGATIVE (NEGATIVE); COLOR, URINE YELLOW (YELLOW); GLUCOSE, URINE (UA) AUTO NEGATIVE (NEGATIVE); KETONE, URINE AUTO NEGATIVE (NEGATIVE); LEUKOCYTE ESTERASE, URINE AUTO NEGATIVE (NEGATIVE); NITRITE, URINE AUTO NEGATIVE (NEGATIVE); PROTEIN, URINE AUTO NEGATIVE (NEGATIVE); RBC, URINE AUTO 0 /HPF (0-3); SPECIFIC GRAVITY URINE AUTO 1.005 (1.002-1.035); SQUAMOUS EPITHELIAL CELL UR AU 0 /HPF (0-6); UROBILINOGEN, URINE AUTO 0.2 mg/dL (0.0-2.0); WBC, URINE AUTO 0 /HPF (0-3)
== END ==
LOC: M SFHCPLAZ 15:04
PROVIDERS: ATTEND Nurse Practitioner Family
DX: N39.0 Urinary tract infection, site not specified (principal)

== ENCOUNTER 2023-10-16 06:19 | Emergency (ER) | payer MEDICARE, MEDICAID ==
[~2023-10-16] VITALS: Ht 142.2 cm; Wt 41.4 kg
[2023-10-16 07:32] LABS: BASO # 0.1 10^3/uL (0.0-0.2); BASO % 1.8 % (0.0-1.0); HEMATOCRIT 43.5 % (36.0-47.0); HEMOGLOBIN 14.3 g/dl (12.0-15.5); LYMPH # 1.2 10^3/uL (1.5-5.0); LYMPH % 31.9 % (24.0-44.0); MEAN CORPUSCULAR HEMOGLOBIN 33.6 pg (27.0-33.0); MEAN CORPUSCULAR HGB CONC 32.9 g/dl (32.0-36.5); MEAN CORPUSCULAR VOLUME 102.4 fl (80.0-96.0); MONO # 0.5 10^3/uL (0.0-0.8); MONO % 11.9 % (2.0-8.0); NEUTROPHILS % 51.1 % (36.0-66.0); PLATELET COUNT, AUTOMATED 329 10^3/uL (150-450); RED BLOOD COUNT 4.25 10^6/uL (4.00-5.40); WHITE BLOOD COUNT 3.9 10^3/uL (4.0-10.0)
[2023-10-16 07:53] LABS: ALBUMIN 3.3 G/DL (3.2-5.2); ALKALINE PHOSPHATASE 118 U/L (46-116); ALT/SGPT 14 U/L (7.0-40); AST/SGOT 21 U/L (<34); BILIRUBIN,TOTAL 0.3 MG/DL (0.3-1.2); BLOOD UREA NITROGEN 29 MG/DL (9-23); CALCIUM LEVEL 8.8 MG/DL (8.5-10.1); CARBON DIOXIDE LEVEL 30 MMOL/L (20-31); CHLORIDE LEVEL 108 MMOL/L (98-107); CREATININE FOR GFR 0.94 MG/DL (0.55-1.30); GLOMERULAR FILTRATION RATE > 60.0 (>51); GLUCOSE, FASTING 120 MG/DL (60-100); POTASSIUM SERUM 4.3 MMOL/L (3.5-5.1); SODIUM LEVEL 143 MMOL/L (136-145); TOTAL PROTEIN 6.8 G/DL (5.7-8.2)
[2023-10-16] MEDS: NS 500 ML IV ONE (08:06)
[2023-10-16] MEDS ORDERED: DEPA250T32 PO (08:16)
[2023-10-16] MEDS: DIVALPROEX 250MG TAB PO ONE (08:29)
[2023-10-16 09:05] VITALS: BP 123/58; TEMP 97; O2SAT 100
== END 2023-10-16 09:28 | disposition home or self-care (01) ==
LOC: M ED 06:19 → EDBD 06:19 → M ED 09:28
DX: G40.89 Other seizures (principal); E78.5 Hyperlipidemia, unspecified; E03.9 Hypothyroidism, unspecified; Q90.9 Down syndrome, unspecified; Z79.899 Other long term (current) drug therapy; Z79.810 Long term (current) use of selective estrogen receptor modulators (SERMs)

== ENCOUNTER 2023-11-27 16:51 | Emergency (ER) | payer MEDICARE, MEDICAID ==
[~2023-11-27] VITALS: Ht 149.9 cm; Wt 39.1 kg
[~2023-11-27 16:51] MED LIST changes: +DEPA250T32 PO
[2023-11-27 17:42] LABS: BASO # 0.1 10^3/uL (0.0-0.2); BASO % 0.7 % (0.0-1.0); EOS % 0.2 % (0.0-3.0); HEMATOCRIT 45.1 % (36.0-47.0); HEMOGLOBIN 14.8 g/dl (12.0-15.5); LYMPH # 1.5 10^3/uL (1.5-5.0); LYMPH % 14.9 % (24.0-44.0); MEAN CORPUSCULAR HEMOGLOBIN 33.8 pg (27.0-33.0); MEAN CORPUSCULAR HGB CONC 32.8 g/dl (32.0-36.5); MONO # 1.1 10^3/uL (0.0-0.8); MONO % 11.3 % (2.0-8.0); NEUTROPHILS # 7.2 10^3/uL (1.5-8.5); NEUTROPHILS % 72.2 % (36.0-66.0); PLATELET COUNT, AUTOMATED 317 10^3/uL (150-450); RED BLOOD COUNT 4.38 10^6/uL (4.00-5.40)
[2023-11-27 18:15] LABS: VALPROIC ACID (DEPAKOTE) 60.6 UG/ML (50.0-100.0)
[2023-11-27 18:16] LABS: ALBUMIN 3.7 G/DL (3.2-5.2); ALKALINE PHOSPHATASE 114 U/L (46-116); ALT/SGPT 16 U/L (7.0-40); AST/SGOT 20 U/L (<34); BILIRUBIN,DIRECT < 0.1 MG/DL (<0.4); BILIRUBIN,TOTAL 0.2 MG/DL (0.3-1.2); BLOOD UREA NITROGEN 28 MG/DL (9-23); CALCIUM LEVEL 9.2 MG/DL (8.5-10.1); CARBON DIOXIDE LEVEL 32 MMOL/L (20-31); CHLORIDE LEVEL 104 MMOL/L (98-107); CREATININE FOR GFR 1.06 MG/DL (0.55-1.30); GLOMERULAR FILTRATION RATE 57.5 (>51); GLUCOSE, FASTING 115 MG/DL (60-100); POTASSIUM SERUM 4.6 MMOL/L (3.5-5.1); SODIUM LEVEL 139 MMOL/L (136-145); TOTAL PROTEIN 7.6 G/DL (5.7-8.2)
[2023-11-27 18:19] LABS: THYROID STIMULATING HORMONE 5.942 uIU/ML (0.55-4.78)
[2023-11-27 20:21] VITALS: TEMP 99.3
[2023-11-27] MEDS: NS 500 ML IV ONE (20:29)
[2023-11-27 20:51] VITALS: O2SAT 92
[2023-11-27 22:06] VITALS: BP 113/58
== END 2023-11-27 22:37 | disposition home or self-care (01) ==
LOC: M ED 16:51
DX: G40.909 Epilepsy, unspecified, not intractable, without status epilepticus (principal); Q90.9 Down syndrome, unspecified; G30.9 Alzheimer's disease, unspecified; I10 Essential (primary) hypertension; E03.9 Hypothyroidism, unspecified; Z79.899 Other long term (current) drug therapy

== ENCOUNTER → 2023-12-07 | Outpatient (CLI) | payer MEDICARE, MEDICAID ==
[2023-12-07 11:19] LABS: BASO # 0.1 10^3/uL (0.0-0.2); BASO % 1.8 % (0.0-1.0); EOS # 0.1 10^3/uL (0.0-0.5); EOS % 1.8 % (0.0-3.0); HEMATOCRIT 46.3 % (36.0-47.0); HEMOGLOBIN 15.2 g/dl (12.0-15.5); LYMPH # 1.3 10^3/uL (1.5-5.0); LYMPH % 32.7 % (24.0-44.0); MEAN CORPUSCULAR HEMOGLOBIN 34.5 pg (27.0-33.0); MEAN CORPUSCULAR HGB CONC 32.8 g/dl (32.0-36.5); MEAN CORPUSCULAR VOLUME 105.2 fl (80.0-96.0); MONO # 0.5 10^3/uL (0.0-0.8); NEUTROPHILS # 1.9 10^3/uL (1.5-8.5); NEUTROPHILS % 49.1 % (36.0-66.0); PLATELET COUNT, AUTOMATED 326 10^3/uL (150-450); WHITE BLOOD COUNT 3.9 10^3/uL (4.0-10.0)
[2023-12-07 11:33] LABS: VALPROIC ACID (DEPAKOTE) 85.5 UG/ML (50.0-100.0)
[2023-12-07 11:35] LABS: ALBUMIN 3.7 G/DL (3.2-5.2); ALKALINE PHOSPHATASE 93 U/L (46-116); ALT/SGPT 14 U/L (7.0-40); AST/SGOT 21 U/L (<34); BILIRUBIN,TOTAL 0.4 MG/DL (0.3-1.2); BLOOD UREA NITROGEN 19 MG/DL (9-23); CALCIUM LEVEL 9.1 MG/DL (8.5-10.1); CARBON DIOXIDE LEVEL 32 MMOL/L (20-31); CHLORIDE LEVEL 103 MMOL/L (98-107); CREATININE FOR GFR 0.95 MG/DL (0.55-1.30); GLOMERULAR FILTRATION RATE > 60.0 (>51); GLUCOSE, FASTING 95 MG/DL (60-100); POTASSIUM SERUM 4.3 MMOL/L (3.5-5.1); SODIUM LEVEL 138 MMOL/L (136-145); TOTAL PROTEIN 7.7 G/DL (5.7-8.2)
[2023-12-07 11:38] LABS: THYROID STIMULATING HORMONE 2.605 uIU/ML (0.55-4.78)
[2023-12-07 11:40] LABS: FREE T4 0.96 NG/DL (0.89-1.76); VITAMIN B12 LEVEL 1636 PG/ML (211-911)
== END ==
LOC: M LAB 10:01
PROVIDERS: ATTEND Family Medicine
DX: G40.309 Generalized idiopathic epilepsy and epileptic syndromes, not intractable, without status epilepticus (principal); E07.9 Disorder of thyroid, unspecified

== ENCOUNTER → 2023-12-12 | Outpatient (REF) | payer MEDICARE, MEDICAID | LOC: M SFHCPLAZ 10:34 | PROVIDERS: ATTEND Family Medicine | DX: G40.309 Generalized idiopathic epilepsy and epileptic syndromes, not intractable, without status epilepticus (principal); E53.8 Deficiency of other specified B group vitamins; E78.2 Mixed hyperlipidemia; R73.01 Impaired fasting glucose ==

== ENCOUNTER → 2024-01-02 | Outpatient (CLI) | payer MEDICARE, MEDICAID | LOC: M WHC 15:15 | PROVIDERS: ATTEND Nurse Practitioner Family | DX: Z12.39 Encounter for other screening for malignant neoplasm of breast (principal); M85.89 Other specified disorders of bone density and structure, multiple sites; M81.8 Other osteoporosis without current pathological fracture; Z12.31 Encounter for screening mammogram for malignant neoplasm of breast ==

== ENCOUNTER 2024-03-06 13:26 | Emergency (ER) | payer MEDICARE, MEDICAID ==
[~2024-03-06] VITALS: Ht 121.9 cm; Wt 39.3 kg
[2024-03-06 15:59] LABS: BASO # 0.1 10^3/uL (0.0-0.2); EOS # 0.1 10^3/uL (0.0-0.5); HEMATOCRIT 44.2 % (36.0-47.0); HEMOGLOBIN 14.9 g/dl (12.0-15.5); LYMPH # 1.5 10^3/uL (1.5-5.0); LYMPH % 20.2 % (24.0-44.0); MEAN CORPUSCULAR HEMOGLOBIN 36.8 pg (27.0-33.0); MEAN CORPUSCULAR HGB CONC 33.7 g/dl (32.0-36.5); MEAN CORPUSCULAR VOLUME 109.1 fl (80.0-96.0); MONO % 13.9 % (2.0-8.0); NEUTROPHILS # 4.6 10^3/uL (1.5-8.5); NEUTROPHILS % 62.8 % (36.0-66.0); PLATELET COUNT, AUTOMATED 289 10^3/uL (150-450); RED BLOOD COUNT 4.05 10^6/uL (4.00-5.40); WHITE BLOOD COUNT 7.3 10^3/uL (4.0-10.0)
[2024-03-06 17:43] LABS: LIPASE 35 U/L (12-53); VALPROIC ACID (DEPAKOTE) 80.2 UG/ML (50.0-100.0)
[2024-03-06 17:50] LABS: ALBUMIN 3.5 G/DL (3.2-5.2); ALKALINE PHOSPHATASE 97 U/L (46-116); ALT/SGPT 16 U/L (7.0-40); AST/SGOT 19 U/L (<34); BILIRUBIN,DIRECT < 0.1 MG/DL (<0.4); BILIRUBIN,TOTAL 0.2 MG/DL (0.3-1.2); BLOOD UREA NITROGEN 23 MG/DL (9-23); CALCIUM LEVEL 9.1 MG/DL (8.5-10.1); CARBON DIOXIDE LEVEL 32 MMOL/L (20-31); CHLORIDE LEVEL 100 MMOL/L (98-107); CREATININE FOR GFR 0.81 MG/DL (0.55-1.30); GLOMERULAR FILTRATION RATE > 60.0 (>51); GLUCOSE, FASTING 104 MG/DL (60-100); POTASSIUM SERUM 4.4 MMOL/L (3.5-5.1); SODIUM LEVEL 138 MMOL/L (136-145); TOTAL PROTEIN 7.8 G/DL (5.7-8.2)
[2024-03-06 18:26] VITALS: BP 122/88; TEMP 96.8; O2SAT 96
== END 2024-03-06 18:47 | disposition home or self-care (01) ==
LOC: M ED 13:26
DX: G40.909 Epilepsy, unspecified, not intractable, without status epilepticus (principal); R32 Unspecified urinary incontinence; E03.9 Hypothyroidism, unspecified; Q90.9 Down syndrome, unspecified; Z79.899 Other long term (current) drug therapy

== ENCOUNTER 2024-03-18 13:19 | Emergency (ER) | payer MEDICARE, MEDICAID ==
[~2024-03-18] VITALS: Ht 160 cm; Wt 40.5 kg
[2024-03-18 14:20] LABS: BASO # 0.1 10^3/uL (0.0-0.2); BASO % 0.8 % (0.0-1.0); EOS % 0.4 % (0.0-3.0); HEMATOCRIT 41.4 % (36.0-47.0); LYMPH # 1.4 10^3/uL (1.5-5.0); LYMPH % 13.1 % (24.0-44.0); MEAN CORPUSCULAR HEMOGLOBIN 36.7 pg (27.0-33.0); MEAN CORPUSCULAR HGB CONC 33.8 g/dl (32.0-36.5); MEAN CORPUSCULAR VOLUME 108.7 fl (80.0-96.0); MONO # 1.7 10^3/uL (0.0-0.8); NEUTROPHILS # 7.1 10^3/uL (1.5-8.5); NEUTROPHILS % 68.3 % (36.0-66.0); PLATELET COUNT, AUTOMATED 313 10^3/uL (150-450); RED BLOOD COUNT 3.81 10^6/uL (4.00-5.40); WHITE BLOOD COUNT 10.4 10^3/uL (4.0-10.0)
[2024-03-18] MEDS ORDERED: DIVA250T67 PO ×2 (14:28)
[2024-03-18] MEDS ORDERED: ALEN70TA82 PO (14:28)
[2024-03-18] MEDS ORDERED: [UNRECOGNIZED DRUG - OTHER] PO (14:28)
[2024-03-18 14:30] LABS: VALPROIC ACID (DEPAKOTE) 73.2 UG/ML (50.0-100.0)
[2024-03-18 14:31] LABS: ALBUMIN 2.8 G/DL (3.2-5.2); ALKALINE PHOSPHATASE 87 U/L (46-116); ALT/SGPT 11 U/L (7.0-40); AST/SGOT 22 U/L (<34); BILIRUBIN,DIRECT < 0.1 MG/DL (<0.4); BILIRUBIN,TOTAL 0.2 MG/DL (0.3-1.2); BLOOD UREA NITROGEN 22 MG/DL (9-23); CALCIUM LEVEL 8.2 MG/DL (8.5-10.1); CARBON DIOXIDE LEVEL 29 MMOL/L (20-31); CHLORIDE LEVEL 104 MMOL/L (98-107); CREATININE FOR GFR 0.96 MG/DL (0.55-1.30); GLOMERULAR FILTRATION RATE > 60.0 (>51); GLUCOSE, FASTING 127 MG/DL (60-100); POTASSIUM SERUM 4.9 MMOL/L (3.5-5.1); SODIUM LEVEL 138 MMOL/L (136-145); TOTAL PROTEIN 6.6 G/DL (5.7-8.2)
[2024-03-18 14:33] LABS: FREE T4 0.97 NG/DL (0.89-1.76)
[2024-03-18] MEDS ORDERED: MELA1TAB31 PO (14:34)
[2024-03-18] MEDS ORDERED: THERTAB52 PO (14:34)
[2024-03-18] MEDS ORDERED: MIRA3350 PO (14:34)
[2024-03-18] MEDS ORDERED: LORA-1041 PO (14:34)
[2024-03-18] MEDS ORDERED: VITA100018 PO (14:34)
[2024-03-18] MEDS ORDERED: HOME MED LIST COMPLETE! XX SCH (14:35)
[2024-03-18] MEDS: NS 1,000 ML IV SCH (16:32)
[2024-03-18] MEDS: NS 500 ML IV ONE (16:34)
[2024-03-18 18:55] VITALS: BP 91/75; TEMP 99.1; O2SAT 97
== END 2024-03-18 19:09 | disposition home or self-care (01) ==
LOC: M ED 13:19 → EDBD 13:19 → M ED 19:09
DX: R53.83 Other fatigue (principal); G40.909 Epilepsy, unspecified, not intractable, without status epilepticus; Q90.9 Down syndrome, unspecified; Z79.810 Long term (current) use of selective estrogen receptor modulators (SERMs); Z79.899 Other long term (current) drug therapy

== ENCOUNTER → 2024-03-29 | Outpatient (CLI) | payer MEDICARE, MEDICAID ==
[~2024-03-29] MED LIST changes: +ALEN70TA82 PO; +DIVA250T67 PO; +LORA-1041 PO; +MELA1TAB31 PO; +MIRA3350 PO; +THERTAB52 PO; +VITA100018 PO; +[UNRECOGNIZED DRUG - OTHER] PO
[2024-03-29 15:33] LABS: BASO # 0.1 10^3/uL (0.0-0.2); BASO % 1.2 % (0.0-1.0); EOS # 0.1 10^3/uL (0.0-0.5); EOS % 0.9 % (0.0-3.0); HEMATOCRIT 39.9 % (36.0-47.0); HEMOGLOBIN 13.2 g/dl (12.0-15.5); LYMPH # 1.6 10^3/uL (1.5-5.0); LYMPH % 23.2 % (24.0-44.0); MEAN CORPUSCULAR HGB CONC 33.1 g/dl (32.0-36.5); MEAN CORPUSCULAR VOLUME 108.7 fl (80.0-96.0); MONO # 0.9 10^3/uL (0.0-0.8); MONO % 13.6 % (2.0-8.0); NEUTROPHILS % 57.2 % (36.0-66.0); PLATELET COUNT, AUTOMATED 483 10^3/uL (150-450); RED BLOOD COUNT 3.67 10^6/uL (4.00-5.40); WHITE BLOOD COUNT 6.9 10^3/uL (4.0-10.0)
[2024-03-29 15:37] LABS: BLOOD UREA NITROGEN 26 MG/DL (9-23); CALCIUM LEVEL 8.6 MG/DL (8.5-10.1); CARBON DIOXIDE LEVEL 31 MMOL/L (20-31); CHLORIDE LEVEL 104 MMOL/L (98-107); GLOMERULAR FILTRATION RATE > 60.0 (>51); GLUCOSE, FASTING 101 MG/DL (60-100); IRON (FE) 30 UG/DL (50-170); PERCENT SATURATION 9.5 % (13.2-45.0); POTASSIUM SERUM 4.5 MMOL/L (3.5-5.1); SODIUM LEVEL 139 MMOL/L (136-145); TOTAL IRON BINDING CAPACITY 316 UG/DL (250-425)
[2024-03-29 15:38] LABS: FERRITIN 209.6 NG/ML (7.3-270.7); THYROID STIMULATING HORMONE 10.221 uIU/ML (0.55-4.78)
[2024-03-29 15:40] LABS: TOTAL 25(OH) VITAMIN D 76.1 NG/ML (20.0-100.0)
== END ==
LOC: M PLALAB 12:52
PROVIDERS: ATTEND Physician Assistant
DX: E03.9 Hypothyroidism, unspecified (principal); D50.8 Other iron deficiency anemias; E83.51 Hypocalcemia; R82.90 Unspecified abnormal findings in urine; S90.32XA Contusion of left foot, initial encounter; Y93.9 Activity, unspecified; Y92.9 Unspecified place or not applicable

== ENCOUNTER → 2024-04-02 | Outpatient (REF) | payer MEDICARE, MEDICAID ==
[2024-04-02 08:12] LABS: AMORPHOUS SEDIMENT SMALL (NEGATIVE); APPEARANCE, URINE CLOUDY (CLEAR); BACTERIA, URINE AUTO 1+ (NEGATIVE); BILIRUBIN, URINE AUTO NEGATIVE (NEGATIVE); BLOOD, URINE BLOOD NEGATIVE (NEGATIVE); COLOR, URINE YELLOW (YELLOW); GLUCOSE, URINE (UA) AUTO NEGATIVE (NEGATIVE); KETONE, URINE AUTO NEGATIVE (NEGATIVE); LEUKOCYTE ESTERASE, URINE AUTO NEGATIVE (NEGATIVE); NITRITE, URINE AUTO NEGATIVE (NEGATIVE); PROTEIN, URINE AUTO NEGATIVE (NEGATIVE); RBC, URINE AUTO 0 /HPF (0-3); SPECIFIC GRAVITY URINE AUTO 1.011 (1.002-1.035); SQUAMOUS EPITHELIAL CELL UR AU 2 /HPF (0-6); UROBILINOGEN, URINE AUTO 0.2 mg/dL (0.0-2.0); WBC, URINE AUTO 0 /HPF (0-3)
== END ==
LOC: M LAB REF 07:29
PROVIDERS: ATTEND Physician Assistant
DX: D50.8 Other iron deficiency anemias (principal); E83.51 Hypocalcemia; R82.90 Unspecified abnormal findings in urine

== ENCOUNTER → 2024-04-23 | Outpatient (REF) | payer MEDICARE, MEDICAID | LOC: M SFHCPLAZ 12:57 | PROVIDERS: ATTEND Family Medicine | DX: G40.309 Generalized idiopathic epilepsy and epileptic syndromes, not intractable, without status epilepticus (principal); E53.8 Deficiency of other specified B group vitamins; E78.2 Mixed hyperlipidemia; R73.01 Impaired fasting glucose; E03.9 Hypothyroidism, unspecified ==

== ENCOUNTER → 2024-05-22 | Outpatient (CLI) | payer MEDICARE, MEDICAID ==
[2024-05-22 10:30] LABS: BASO # 0.1 10^3/uL (0.0-0.2); BASO % 1.2 % (0.0-1.0); EOS % 0.7 % (0.0-3.0); HEMATOCRIT 46.1 % (36.0-47.0); HEMOGLOBIN 15.4 g/dl (12.0-15.5); LYMPH # 1.2 10^3/uL (1.5-5.0); LYMPH % 30.5 % (24.0-44.0); MEAN CORPUSCULAR HEMOGLOBIN 35.5 pg (27.0-33.0); MEAN CORPUSCULAR HGB CONC 33.4 g/dl (32.0-36.5); MEAN CORPUSCULAR VOLUME 106.2 fl (80.0-96.0); MONO # 0.4 10^3/uL (0.0-0.8); MONO % 9.3 % (2.0-8.0); NEUTROPHILS # 2.3 10^3/uL (1.5-8.5); NEUTROPHILS % 57.6 % (36.0-66.0); PLATELET COUNT, AUTOMATED 364 10^3/uL (150-450); RED BLOOD COUNT 4.34 10^6/uL (4.00-5.40); WHITE BLOOD COUNT 4.1 10^3/uL (4.0-10.0)
[2024-05-22 10:54] LABS: TOTAL IRON BINDING CAPACITY 311 UG/DL (250-425)
[2024-05-22 10:56] LABS: ALBUMIN 3.8 G/DL (3.2-5.2); ALKALINE PHOSPHATASE 104 U/L (46-116); ALT/SGPT 19 U/L (7.0-40); AST/SGOT 16 U/L (<34); BILIRUBIN,TOTAL 0.5 MG/DL (0.3-1.2); BLOOD UREA NITROGEN 19 MG/DL (9-23); CARBON DIOXIDE LEVEL 30 MMOL/L (20-31); CHLORIDE LEVEL 104 MMOL/L (98-107); CHOLESTEROL LEVEL 204 MG/DL (<200); CHOLESTEROL RISK RATIO 3.22 (<5); CREATININE FOR GFR 0.86 MG/DL (0.55-1.30); GLOMERULAR FILTRATION RATE > 60.0 (>51); GLUCOSE, FASTING 119 MG/DL (60-100); HDL CHOLESTEROL 63.3 MG/DL (>40); IRON (FE) 76 UG/DL (50-170); LDL CHOLESTEROL 116.3 MG/DL (<100); NON-HDL-C 140.7 MG/DL; PERCENT SATURATION 24.4 % (13.2-45.0); POTASSIUM SERUM 4.3 MMOL/L (3.5-5.1); SODIUM LEVEL 137 MMOL/L (136-145); TOTAL PROTEIN 7.9 G/DL (5.7-8.2); TRIGLYCERIDES LEVEL 122 MG/DL (<150)
[2024-05-22 10:59] LABS: THYROID STIMULATING HORMONE 4.152 uIU/ML (0.55-4.78)
[2024-05-22 11:00] LABS: FREE T4 1.37 NG/DL (0.89-1.76)
[2024-05-22 11:01] LABS: VITAMIN B12 LEVEL 679 PG/ML (211-911)
[2024-05-22 11:03] LABS: HEMOGLOBIN A1c 5.5 % (4.0-6.0)
== END ==
LOC: M PLALAB 07:55
PROVIDERS: ATTEND Family Medicine
DX: G40.309 Generalized idiopathic epilepsy and epileptic syndromes, not intractable, without status epilepticus (principal); R73.01 Impaired fasting glucose; E78.2 Mixed hyperlipidemia; E53.8 Deficiency of other specified B group vitamins; E03.9 Hypothyroidism, unspecified; D50.9 Iron deficiency anemia, unspecified

== ENCOUNTER → 2024-07-19 | Outpatient (REF) | payer MEDICARE, MEDICAID | LOC: M SFHCPLAZ 10:27 | DX: R05.1 Acute cough (principal) ==

== ENCOUNTER → 2024-10-16 | Outpatient (CLI) | payer MEDICARE, MEDICAID | LOC: M PLAIMG 14:51 | PROVIDERS: ATTEND Family Medicine | DX: J06.9 Acute upper respiratory infection, unspecified (principal) ==

== ENCOUNTER → 2024-10-17 | Outpatient (REF) | payer MEDICARE, MEDICAID | LOC: M SFHCPLAZ 11:26 | DX: J06.9 Acute upper respiratory infection, unspecified (principal) ==

== ENCOUNTER → 2024-10-31 | Outpatient (REF) | payer MEDICARE, MEDICAID | LOC: M LAB REF 11:17 | PROVIDERS: ATTEND Emergency Medicine | DX: N39.0 Urinary tract infection, site not specified (principal); Z60.8 Other problems related to social environment ==

== ENCOUNTER → 2025-01-06 | Outpatient (CLI) | payer MEDICARE, MEDICAID | LOC: M WHC 10:05 | PROVIDERS: ATTEND Nurse Practitioner Family | DX: Z12.31 Encounter for screening mammogram for malignant neoplasm of breast (principal); R92.323 Mammographic fibroglandular density, bilateral breasts ==

== ENCOUNTER → 2025-01-07 | Outpatient (REF) | payer MEDICARE, MEDICAID | LOC: M LAB REF 16:49 | PROVIDERS: ATTEND Nurse Practitioner Family | DX: R30.0 Dysuria (principal) ==

== ENCOUNTER → 2025-08-09 | Outpatient (CLI) | payer MEDICARE, MEDICAID ==
[~2025-08-09] MED LIST changes: -DEPA250T32 PO; +DIVA-65 PO
[2025-08-09 09:57] LABS: BASO # 0.1 10^3/uL (0.0-0.2); BASO % 1.5 % (0.0-1.0); EOS # 0.2 10^3/uL (0.0-0.5); EOS % 3.2 % (0.0-3.0); LYMPH # 1.1 10^3/uL (1.5-5.0); LYMPH % 18.9 % (24.0-44.0); MONO # 0.4 10^3/uL (0.0-0.8); MONO % 7.2 % (2.0-8.0); NEUTROPHILS # 4.0 10^3/uL (1.5-8.5); NEUTROPHILS % 67.7 % (36.0-66.0)
[2025-08-09 10:20] LABS: ALT/SGPT 24.0 U/L (7.0-40); AST/SGOT 22.0 U/L (<34); CALCIUM LEVEL 8.6 MG/DL (8.5-10.1); CARBON DIOXIDE LEVEL 25.0 MMOL/L (20-31); CHLORIDE LEVEL 107.0 MMOL/L (98-107); CHOLESTEROL LEVEL 287.0 MG/DL (<200); CHOLESTEROL RISK RATIO 5.22 (<5); CREATININE FOR GFR 0.86 MG/DL (0.55-1.30); GLOMERULAR FILTRATION RATE 79.2 (>51); IRON (FE) 102.0 UG/DL (50-170); LDL CHOLESTEROL 178.9 MG/DL (<100); NON-HDL-C 232.1 MG/DL; PERCENT SATURATION 34.9 % (13.2-45.0); POTASSIUM SERUM 4.5 MMOL/L (3.5-5.1); SODIUM LEVEL 142.0 MMOL/L (136-145); TRIGLYCERIDES LEVEL 266.0 MG/DL (<150)
[2025-08-09 10:22] LABS: FREE T4 0.97 NG/DL (0.89-1.76)
[2025-08-09 10:53] LABS: ESTIMATED AVERAGE GLUCOSE 123.0 MG/DL (60-110)
[2025-08-12 10:37] LABS: INSULIN LEVEL 13.5 uIU/mL (<=18.4)
[2025-08-13 03:22] LABS: LEVETIRACETAM (KEPPRA) 43.1 mcg/mL (10.0-40.0)
== END ==
LOC: M LAB 08:26
PROVIDERS: ATTEND Family Medicine
DX: G40.309 Generalized idiopathic epilepsy and epileptic syndromes, not intractable, without status epilepticus (principal); R73.01 Impaired fasting glucose; E03.9 Hypothyroidism, unspecified; E78.2 Mixed hyperlipidemia; D50.9 Iron deficiency anemia, unspecified

== ENCOUNTER → 2025-08-12 | Outpatient (REF) | payer MEDICARE, MEDICAID ==
[2025-08-12 20:38] LABS: CREATININE, URINE 50.6 MG/DL; MALB URINE SIEMENS 6.0 MG/L; MAU/CREAT RATIO 11.8 MCG/MG (0.0-30.0)
== END ==
LOC: M LAB REF 17:32
PROVIDERS: ATTEND Family Medicine
DX: R73.01 Impaired fasting glucose (principal); G40.309 Generalized idiopathic epilepsy and epileptic syndromes, not intractable, without status epilepticus; E03.9 Hypothyroidism, unspecified; E78.2 Mixed hyperlipidemia; D50.9 Iron deficiency anemia, unspecified